=== PATIENT | female | born 1985 | race African-American/Black ===

== ENCOUNTER 2020-02-22 15:38 | Emergency (ER) | payer MEDICAID ==
[~2020-02-22] VITALS: Ht 165.1 cm; Wt 67.6 kg
[2020-02-22 15:40] VITALS: BP 134/87
[2020-02-22] MEDS ORDERED: ONDANSETRON 4 MG ODT PO ONE (15:55)
[2020-02-22] MEDS ORDERED: KETOROLAC 60 MG/2 ML VIAL IM ONE (15:55)
--- NOTE | 2020-02-22 16:00 | NUR ---
H/A X 2 DAYS WITH NAUSEA , PT AOX 4 , AFIBRILE, AMBULATORY WITH STEADY GAIT, DENIES TRUAMA TO HEAD AND PMHXS , NO DIZZINESS , SCE, CBS.
--- NOTE | 2020-02-22 16:28 | NUR ---
PRINCE PALMER AT BEDSIDE REEVALUATING PT.
--- NOTE | 2020-02-22 16:31 | NUR ---
Patient discharged with v/s stable. Written and verbal after care instructions given and explained regarding headache. Patient alert, oriented and verbalized understanding of instructions. Ambulatory with steady gait. All questions addressed prior to discharge. ID band removed. Patient advised to follow up with PMD. Rx of zofran , keflex and tramadol given. Patient educated on indication of medication including possible reaction and side effects. Opportunity to ask questions provided and answered.
[2020-02-22 16:32] VITALS: BP 130/87
== END 2020-02-22 16:31 | disposition home or self-care (01) ==
LOC: MED 15:38
DX: N39.0 Urinary tract infection, site not specified (principal); F17.210 Nicotine dependence, cigarettes, uncomplicated; G43.909 Migraine, unspecified, not intractable, without status migrainosus; Z98.890 Other specified postprocedural states
CPT/HCPCS: 81002; 81025; 96372; 99283; J1885; Q0162